=== PATIENT | female | born 1990 | race Caucasian/White ===

== ENCOUNTER 2016-06-26 08:02 | Day surgery (SDC) | payer OTHER ==
[~2016-06-26 08:02] MED LIST: ETHINYL ESTRADIOL PO; FERROUS FUMARATE PO; IBUPROFEN200 M2 PO; NORCO 5/3251 TAB PO; NORETHINDRONE PO
== END 2016-06-26 13:20 ==
LOC: WSU 08:02 → SHSC 08:06 → ORW 10:28 → PACU 11:08
PROC: 0HBT0ZZ Excision of Right Breast, Open Approach (ICD-10-PCS; principal; 2016-06-26)
PROC: BH40ZZZ Ultrasonography of Right Breast (ICD-10-PCS; 2016-06-26)
DX: D24.1 Benign neoplasm of right breast (principal); Z90.49 Acquired absence of other specified parts of digestive tract; Z98.890 Other specified postprocedural states
CPT/HCPCS: J0690